=== PATIENT | female | born 1965 | race Caucasian/White ===

== ENCOUNTER 2017-03-17 09:05 | Emergency (ER) | payer OTHER ==
[2017-03-17 10:24] LABS: ABS Basophils 0.1 10^3/ul (0-0.2); ABS Eosinophils 0.2 10^3/ul (0-0.6); ABS Lymphocytes 1.6 10^3/ul (1.0-4.8); ABS Monocytes 0.6 10^3/ul (0-0.8); ABS Neutrophils 4.2 10^3/ul (1.5-7.7); ABS Nucleated RBC 0 10^3/ul; Eosinophil % 3.6 % (0-6); Hematocrit 42 % (35-47); Hemoglobin 14.3 g/dl (12.0-16.0); Lymphocyte % 23.2 % (25-47); Mean Corpuscular HGB Conc 34 g/dl (31-36); Mean Corpuscular Hemoglobin 31 pg (27-31); Mean Corpuscular Volume 91 fL (80-97); Mean Platelet Volume 9 um3 (7.4-10.4); Nucleated Red Blood Cells % 0; Platelet Count 238 10^3/ul (150-450); Red Blood Count 4.61 10^6/ul (4.0-5.4); Red Cell Distribution Width 13 % (10.5-15); White Blood Count 6.8 10^3/ul (3.5-10.8)
[2017-03-17 10:54] LABS: EGFR Non-African American 83.4 (>60)
--- NOTE | 2017-03-17 11:53 | RAD ---
INDICATION: Chest pain. COMPARISON: There are no prior studies available for comparison. TECHNIQUE: A portable view of the chest was obtained. FINDINGS: Cardiac and mediastinal contours appear to be within normal limits. The lungs are clear. No pleural effusion or pneumothorax is seen. IMPRESSION: NO EVIDENCE FOR ACUTE DISEASE.
[2017-03-17 14:15] VITALS: BP 00/00
--- NOTE | 2017-03-17 16:26 | ED ---
Raleigh Anne Stephanie, scribed for Rivera Schwartz MD on 03/17/17 at 1031 . HPI Chest Pain - HPI Summary HPI Summary: The pt is a 51 y/o F presenting to the ED with CP that began 2 days ago. The pt woke up this morning with CP over the L side of the chest. The pain is described as burning and sharp. Symptoms include dizziness, lightheadedness, cold sweat and vision changes. The dizziness is described as cloudy and blurry. The pt denies nausea, calf or pedal swelling. The pain is aggravated by stress and movement and position changes. She has a history of CP and saw a doctor in [place] (home) 6 months ago and completed an EKG (nml). The pt does not have a PCP. - History of Current Complaint Chief Complaint: EDDizziness Time Seen by Provider: 03/17/17 09:46 Hx Obtained From: Patient Onset/Duration: Started Days Ago - 2 Timing: Constant Current Severity: Mild Pain Intensity: 3 Pain Scale Used: 0-10 Numeric Chest Pain Location: Discrete at: - L side of chest Chest Pain Radiates: No Character: Burning, Sharp/Stabbing Aggravating Factor(s): Position, Movement Associated Signs and Symptoms: Positive: Vision Changes, Dizziness, Lightheadedness, Diaphoresis - Allergy/Home Medications Allergies/Adverse Reactions: Allergies Allergy/AdvReac Type Severity Reaction Status Date / Time No Known Allergies Allergy Verified 09/11/13 12:41 Home Medications: Home Medications NK [No Home Medications Reported] 03/17/17 [History Confirmed 03/17/17] PMH/Surg Hx/FS Hx/Imm Hx Opthamlomology History: Denies: Hx Legally Blind EENT History: Denies: Hx Deafness Infectious Disease History: No Infectious Disease History: Denies: Traveled Outside the [place] in Last 30 Days - Family History Known Family History: Positive: Unknown - Pt denies familty history when asked - Social History Lives: With Family Alcohol Use: Occasionally Substance Use Type: Reports: Marijuana Substance Use Comment - Amount & Last Used: daily Smoking Status (MU): Never Smoked Tobacco Review of Systems Positive: Skin Diaphoresis. Negative: Fever Positive: Other - Vision changes, dizziness, lightheadedness. Negative: Nausea Negative: Edema - Negative: calf and pedal swelling All Other Systems Reviewed And Are Negative: Yes Physical Exam - Summary Physical Exam Summary: Appearance: The patient is well-nourished in no acute distress and in no acute pain. Skin: The skin is warm and dry and skin color reflects adequate perfusion. HEENT: The head is normocephalic and atraumatic. The pupils are equal and reactive. The conjunctivae are clear and without drainage. Nares are patent and without drainage. Mouth reveals moist mucous membranes and the throat is without erythema and exudate. The external ears are intact. The ear canals are patent and without drainage. The tympanic membranes are intact. Neck: the neck is supple with full range of motion and non-tender. There are no carotid bruits. There is no neck vein distension. Respiratory: Chest is non-tender. Lungs are clear to auscultation and breath sounds are symmetrical and equal. Cardiovascular: Heart is regular rate and rhythm. There is no murmur or rub auscultated. There is no peripheral edema and pulses are symmetrical and equal. Abdomen: The abdomen is soft and non-tender. There are normal bowel sounds heard in all four quadrants and there is no organomegaly palpated. Musculoskeletal: There is no back tenderness noted. Extremities are non-tender with full range of motion. There is good capillary refill. There is no peripheral edema or calf tenderness elicited. Tender in L parasternal area. Neurological: Patient is alert and oriented to person, place and time. The patient has symmetrical motor strength in all four extremities. Cranial nerves are grossly intact. Deep tendon reflexes are symmetrical and equal in all four extremities. Psychiatric: The patient has an appropriate affect and does not exhibit any anxiety or depression. Triage Information Reviewed: Yes Vital Signs On Initial Exam: Initial Vitals Temp Pulse Resp BP Pulse Ox 98.1 F 80 18 124/68 96 03/17/17 09:11 03/17/17 09:11 03/17/17 09:11 03/17/17 09:11 03/17/17 09:11 Vital Signs Reviewed: Yes - Robin Coma Scale Coma Scale Total: 15 Diagnostics - Vital Signs Vital Signs Temp Pulse Resp BP Pulse Ox 03/17/17 09:11 98.1 F 80 18 124/68 96 - Laboratory Lab Results: Lab Results 03/17/17 Range/Units 10:11 WBC 6.8 (3.5-10.8) 10^3/ul RBC 4.61 (4.0-5.4) 10^6/ul Hgb 14.3 (12.0-16.0) g/dl Hct 42 (35-47) % MCV 91 (80-97) fL MCH 31 (27-31) pg MCHC 34 (31-36) g/dl RDW 13 (10.5-15) % Plt Count 238 (150-450) 10^3/ul MPV 9 (7.4-10.4) um3 Neut % (Auto) 62.5 (38-83) % Lymph % (Auto) 23.2 L (25-47) % Bulloch % (Auto) 9.4 H (1-9) % Eos % (Auto) 3.6 (0-6) % Baso % (Auto) 1.3 (0-2) % Absolute Neuts (auto) 4.2 (1.5-7.7) 10^3/ul Absolute Lymphs (auto) 1.6 (1.0-4.8) 10^3/ul Absolute Monos (auto) 0.6 (0-0.8) 10^3/ul Absolute Eos (auto) 0.2 (0-0.6) 10^3/ul Absolute Basos (auto) 0.1 (0-0.2) 10^3/ul Absolute Nucleated RBC 0 10^3/ul Nucleated RBC % 0 Result Diagrams: 03/17/17 10:11 03/17/17 10:11 Lab Statement: Any lab studies that have been ordered have been reviewed, and results considered in the medical decision making process. - Radiology CXR Xray Interpretation: No Acute Changes Radiology Interpretation Completed By: Radiologist - NO EVIDENCE FOR ACUTE DISEASE. - EKG 09:19 EKG Rhythm: Sinus Rhythm - 74 BPM EKG Interpretation: Normal EKG Re-Evaluation - Re-Evaluation First Eval Re-Evaluation Time: 12:53 Change: Unchanged Chest Pain Course/Dx - Course Course Of Treatment: Ms. Dawkins presented with a left-sided CP that she has had on and off for two days. It is worsened by certain movements and 'stress'. Her W/U including two troponins and a d-dimer was negative. I think this is a musculoskeletal pain. - Diagnoses Provider Diagnoses: Chest pain Discharge - Discharge Plan Condition: Stable Disposition: HOME Patient Education Materials: Chest Pain (ED) Referrals: [facility]IAN REFERRAL [Outside] No Primary Care Phys,NOPCP [Primary Care Provider] - The documentation as recorded by the Raleigh champagne Stephanie accurately reflects the service I personally performed and the decisions made by me, Rivera Schwartz MD.
== END 2017-03-17 14:15 | disposition home or self-care (01) ==
LOC: ED 09:05
DX: R07.89 Other chest pain (principal); R42 Dizziness and giddiness; H53.9 Unspecified visual disturbance; Z32.02 Encounter for pregnancy test, result negative; F12.90 Cannabis use, unspecified, uncomplicated
CPT/HCPCS: 36415; 71045; 80053; 83605; 84484; 84702; 85025; 85379; 93005; 99283